=== PATIENT | female | born 1945 | race Caucasian/White ===

== ENCOUNTER 2023-01-03 07:56 | Emergency (ER) | payer OTHER ==
[~2023-01-03] VITALS: Ht 162.6 cm; Wt 113.4 kg
[2023-01-03 08:06] VITALS: BP_SYST 154
[2023-01-03] MEDS ORDERED: MORPHINE 4 MG INJ. 4 MG/ML VIAL IM ONE (08:15)
[2023-01-03] MEDS ORDERED: NAPR-1172 PO (09:43)
[2023-01-03] MEDS ORDERED: NEU300 PO (09:46)
[2023-01-03 10:02] VITALS: BP_SYST 154
== END 2023-01-03 10:03 | disposition home or self-care (01) ==
LOC: SED 07:56
DX: M54.32 Sciatica, left side (principal); M54.50 Low back pain, unspecified; M25.552 Pain in left hip; Z79.899 Other long term (current) drug therapy
CPT/HCPCS: 99283; 96372; J2270

== ENCOUNTER 2023-02-11 14:22 | Inpatient (IN) | payer OTHER ==
[~2023-02-11] VITALS: Ht 154.9 cm; Wt 101.6 kg
[~2023-02-11 14:22] MED LIST: NAPR-1172 PO; NEU300 PO
[2023-02-11 14:23] VITALS: BP_SYST 154; PULSE 75; RESP 18; TEMP 98.3; O2SAT 97
--- NOTE | 2023-02-11 14:23 | NUR ---
Patient to ER bed 02 to gown for evaluation. Side rails up. Report given to Dc BUSTAMANTE .
[2023-02-11] MEDS ORDERED: ONDANSETRON HCL 4 MG/2 ML VIAL IVP ONE (14:30)
[2023-02-11] MEDS ORDERED: MORPHINE 4 MG INJ. 4 MG/ML VIAL IVP ONE (14:30)
--- NOTE | 2023-02-11 15:18 | NUR ---
Patient is on gurney hysterically crying about every thing. Patient's daughter and son are also at bedside, helping her to go to the bathroom for a urine sample. Patient has been to CT and Xray as well as labs have been drawn.
[2023-02-11 15:26] LABS: BASOPHILS # (AUTO) 0.1 K/uL (0.0-0.2); BASOPHILS % (AUTO) 0.8 % (0.0-2.0); EOSINOPHILS # (AUTO) 0.1 K/uL (0.0-0.4); HEMOGLOBIN 13.6 g/dL (12.0-16.0); LYMPHOCYTES # (AUTO) 2.1 K/uL (1.0-5.5); MEAN CORPUSCULAR HEMOGLOBIN 27 pg (27-31); MEAN CORPUSCULAR HGB CONC 32 % (32-36); MEAN CORPUSCULAR VOLUME 85 fL (79.0-98.0); MONOCYTES # (AUTO) 0.9 K/uL (0.0-1.0); MONOCYTES % (AUTO) 9.7 % (1.7-9.3); NEUTROPHILS # (AUTO) 5.9 K/uL (1.8-7.7); NEUTROPHILS % (AUTO) 65.5 % (40.0-70.0); PLATELET COUNT (AUTO) 304 K/uL (130-430); RED BLOOD CELL COUNT(AUTO) 4.95 MIL/uL (4.2-6.2); RED CELL DISTRIBUTION WIDTH 15.6 % (9.0-15.0)
[2023-02-11 15:41] LABS: ANION GAP 9 (5-15); CALCIUM 8.3 mg/dL (8.4-11.0); CHLORIDE 99 mmol/L (98-107); CREATININE 1.26 mg/dL (0.55-1.30); GLUCOSE 181 mg/dL (70-99); UREA NITROGEN, BLOOD 14 mg/dL (8-21)
[2023-02-11 15:46] LABS: ALANINE AMINOTRANSFERASE 17 U/L (12-78); ALBUMIN 3.2 g/dL (3.4-4.8); ASPARTATE AMINOTRANSFERASE 38 U/L (10-37); TOTAL BILIRUBIN 0.4 mg/dL (0.0-1.0)
--- NOTE | 2023-02-11 16:33 | NUR ---
Patient discovered that bone was broken and that she would stay in the hospital today. Completed EKG and and IV and family remains at bedside.
[2023-02-11] MEDS ORDERED: ACETAMINOPHEN 325 MG TABLET PO PRN (17:30)
[2023-02-11] MEDS ORDERED: HYDROcodone/ACETAMIN 5-325 MG TAB (NORCO/ VICODIN) PO PRN (17:30)
[2023-02-11 18:01] LABS: BILIRUBIN,URINE NEGATIVE (NEGATIVE); BLOOD, URINE NEGATIVE (NEGATIVE); CLARITY/URINE CLEAR (CLEAR); COLOR,URINE YELLOW (YELLOW); GLUCOSE,URINE NEGATIVE (NEGATIVE); KETONES,URINE NEGATIVE (NEGATIVE); LEUKOCYTE ESTERASE ,URINE TRACE (NEGATIVE); NITRITE, URINE NEGATIVE (NEGATIVE); PH,URINE 6.5 (5.0-8.0); PROTEIN URINE NEGATIVE (NEGATIVE); UROBILINOGEN,URINE 0.2 (0.2-1.0)
[2023-02-11 18:11] LABS: BACTERIA,URINE RARE /HPF (None Seen); MUCUS,URINE None Seen /LPF (None Seen); RBC,URINE NONE SEEN /HPF (0-3)
--- NOTE | 2023-02-11 19:13 | NUR ---
RECEIVED FOR CARE AFTER REPORT. PT AWAITING ROOM ASSIGNMENT.
--- NOTE | 2023-02-11 19:45 | NUR ---
Medication reconciliation completed with information provided by SON at the bedside. Any prior medication reconciliation on file was reviewed and corrected.
[2023-02-11] MEDS ORDERED: HYD500 PO (19:48)
[2023-02-11] MEDS ORDERED: OMEP20CA15 PO (19:48)
[2023-02-11] MEDS ORDERED: FURO40SO5 PO (19:48)
[2023-02-11] MEDS ORDERED: PRAV10TA PO (19:48)
[2023-02-11] MEDS ORDERED: DILT180C67 PO (19:48)
[2023-02-11] MEDS ORDERED: METH-373 PO (19:48)
--- NOTE | 2023-02-11 19:49 | NUR ---
Admit bed requested Patient will be admitted to care of Dr.A SKELTON. Admitted to MED SURG unit. Diagnosis HUMERUS FRACTURE,HTN Inpatient (Yes or No) YES Observation (Yes or No) NO Orientation concerns or request close to nursing station (Yes or No) NO Covid Status N/A On vent or bipap NO Isolation requirements NO Needs a sitter NO From Home (Yes or if No enter name of facility) YES Requires Dialysis (Yes or No) NO Med Rec Completed (Yes of No) YES
--- NOTE | 2023-02-11 19:49 | NUR ---
REPORT CALLED TO ROBBY BOONE. TRANSPORTED TO FLOOR.
--- NOTE | 2023-02-11 20:32 | NUR ---
Patient will be admitted to care of [facility]. Admitted to MED SURGE unit. Will go to room 113A . Belongings list completed. Complete and up to date summary report printed. SBAR report to be given at bedside TO ROBBY BOONE with opportunity for questions.
[2023-02-11] MEDS: HYDROcodone/ACETAMIN 10-325 MG TAB PO PRN (20:42)
[2023-02-11 21:04] VITALS: BP_SYST 155; PULSE 89; RESP 20; TEMP 97.5
[2023-02-11 21:18] VITALS: O2SAT 95
--- NOTE | 2023-02-11 21:31 | NUR ---
ADMISSION: The patient, HAILEY CHRISTOPHER, 77 y/o, F admitted by LUCY SKELTON MD, was given written information regarding hospital policies, unit procedures and PROCEDURES EXPLAINED Fall Risk measures implemented , call alicea procedure explained FAMILY @ THE BEDSIDE personal belongings completed at the bedside / . Valuables were checked and .
[2023-02-11] MEDS ORDERED: ONDANSETRON HCL 4 MG/2 ML VIAL IVP PRN (22:15)
[2023-02-11] MEDS ORDERED: LORazepam 2 MG/ML VIAL IVP PRN (22:15)
--- NOTE | 2023-02-11 22:35 | NUR ---
Patient stated / DID NOT NEED C PAP and REFUSE C PAP for the night , 02 SAT 95 % on room air .
--- NOTE | 2023-02-11 23:29 | NUR ---
NORCO TABLET po administer for acute pain and helpful / .
[2023-02-12] VITALS (9 sets, daily range): BP systolic 122–155; PULSE 70–87; RESP 16–18; TEMP 96.4–97.7; O2SAT 91–97
--- NOTE | 2023-02-12 01:20 | NUR ---
PAGED: DR Melony SKELTON PAGED TO GET ORDER FOR CPAP , PT STATED SHE USE CPAP AT NIGHT .
--- NOTE | 2023-02-12 02:08 | NUR ---
HOURLY ROUNDING patient resting is verbally Responsive Respirations Regular also unlabored skin dry warm is verbally responsive .
--- NOTE | 2023-02-12 02:43 | NUR ---
PAGED FOR THE 3RD TIME NO CALL BACK
--- NOTE | 2023-02-12 02:58 | NUR ---
CONSULTATION PAGED REASON FOR CONSULTATION: HUMERUS FRACTURE WAS CONSULT CALLED? Y PERSON WHO WAS NOTIFIED: PILI CONSULTING PHYSICIAN: DR. WILLY PEPPER EQUIPMENT OPERAT0R DIGITAL PROOFING AND PLATEMAKER SPECIALTY: ORTHO DIGITAL PROOFING AND PLATEMAKER PHONE NUMBER: [phone] REQUESTING PHYSICIAN: Teresa SKELTON
--- NOTE | 2023-02-12 03:28 | NUR ---
MD CALLED BACK: DR Melony SKELTON CALLED BACK , NOTIFIED MD THAT PT USES CPAP AT HOME , RECEIVED NEW ORDER FOR CPAP.
[2023-02-12 05:44] LABS: BASOPHILS % (AUTO) 0.5 % (0.0-2.0); EOSINOPHILS # (AUTO) 0.1 K/uL (0.0-0.4); EOSINOPHILS % (AUTO) 0.7 % (0.0-4.0); HEMATOCRIT 37.8 % (36-48); HEMOGLOBIN 12.2 g/dL (12.0-16.0); LYMPHOCYTES # (AUTO) 1.2 K/uL (1.0-5.5); LYMPHOCYTES % (AUTO) 15.8 % (20.5-51.5); MEAN CORPUSCULAR HEMOGLOBIN 27 pg (27-31); MEAN CORPUSCULAR HGB CONC 32 % (32-36); MEAN CORPUSCULAR VOLUME 85 fL (79.0-98.0); MONOCYTES # (AUTO) 0.9 K/uL (0.0-1.0); MONOCYTES % (AUTO) 12.2 % (1.7-9.3); NEUTROPHILS # (AUTO) 5.2 K/uL (1.8-7.7); NEUTROPHILS % (AUTO) 70.8 % (40.0-70.0); PLATELET COUNT (AUTO) 268 K/uL (130-430); RED BLOOD CELL COUNT(AUTO) 4.43 MIL/uL (4.2-6.2); RED CELL DISTRIBUTION WIDTH 15.6 % (9.0-15.0); WHITE BLOOD COUNT (AUTO) 7.3 K/uL (4.8-10.8)
[2023-02-12] MEDS: NORMAL SALINE 5 ML DISP.SYRIN IVF SCH ×3 (06:08→23:08)
[2023-02-12 06:36] LABS: ALANINE AMINOTRANSFERASE 182 U/L (12-78); ALBUMIN 2.7 g/dL (3.4-4.8); ANION GAP 5 (5-15); ASPARTATE AMINOTRANSFERASE 225 U/L (10-37); CALCIUM 7.9 mg/dL (8.4-11.0); CHLORIDE 100 mmol/L (98-107); CREATININE 1.09 mg/dL (0.55-1.30); GLUCOSE 193 mg/dL (70-99); TOTAL BILIRUBIN 0.6 mg/dL (0.0-1.0); UREA NITROGEN, BLOOD 12 mg/dL (8-21)
--- NOTE | 2023-02-12 08:00 | NUR ---
ASSUMED CARE OF PATIENT AT THIS TIME. VSS. AFEBRILE. RESPIRATIONS EVEN AND UNLABORED. NO SOB NOTED. C/O LEFT ARM PAIN AT 7/10. WILL MEDICATE ORDERED. NO ACUTE DISTRESS NOTED. WILL CONTINUE TO MONITOR FOR SAFETY. Barrington RAMOS RN.
[2023-02-12] MEDS: HYDROXYUREA 500 MG CAPSULE (HYDREA) PO SCH (08:44)
[2023-02-12] MEDS: DILTIAZEM HCL 180 MG CAP.SR.24H PO SCH (08:44)
[2023-02-12] MEDS: FUROSEMIDE 40 MG TABLET PO SCH (08:45)
[2023-02-12] MEDS: methIMAzole 5 MG TABLET PO SCH (08:45)
[2023-02-12] MEDS: PANTOPRAZOLE SODIUM 40 MG TAB PO SCH (08:45)
[2023-02-12] MEDS: HYDROcodone/ACETAMIN 10-325 MG TAB PO PRN ×2 (08:49→17:56)
--- NOTE | 2023-02-12 18:35 | NUR ---
REMAINS IN STABLE CONDITION. NO ACUTE DISTRESS NOTED. Barrington RAMOS RN.
[2023-02-12] MEDS: ATORVASTATIN 10 MG TABLET PO SCH (20:44)
[2023-02-13] VITALS: BP_SYST 130; PULSE 75; RESP 17; TEMP 97.6; O2SAT 95
[2023-02-13 03:25] VITALS: O2SAT 95
[2023-02-13] MEDS: NORMAL SALINE 5 ML DISP.SYRIN IVF SCH ×3 (06:29→21:59)
[2023-02-13 07:10] VITALS: BP_SYST 145; PULSE 73; RESP 18; TEMP 97.5; O2SAT 91
--- NOTE | 2023-02-13 07:30 | NUR ---
OPENING NOTES Patient laying in bed resting. A/O x 4, [place]an speaking. Patient breathing even and unlabored on room air. Pain to Left shoulder, no distress, no SOB. Patient is on a Cardiac diet. Patient has RAC 22g patent on SL. Patient is on bedrest with PURWICK. Bed is locked in lowest position. Call light within reach, all needs met, will continue with plan of care.
--- NOTE | 2023-02-13 09:03 | NUR ---
Patient left for gastric emptying study. Should take between 2-4 hrs. Daughter is with her and took her personal items.
[2023-02-13 09:15] VITALS: BP_SYST 145; PULSE 73; RESP 18; TEMP 97; O2SAT 91
--- NOTE | 2023-02-13 11:00 | NUR ---
PATIENT CAME BACK FROM GASTRIC EMPTYING PROCEDURE.
[2023-02-13] MEDS ORDERED: FAMO40TA7 PO (11:12)
--- NOTE | 2023-02-13 11:19 | NUR ---
FER HCP CM Spoke with Fer from HCP regarding transfer to SNF and per Fer she is waiting on PT eval in order to see for SNF placement. PT to eval after 2pm.
[2023-02-13] MEDS: DILTIAZEM HCL 180 MG CAP.SR.24H PO SCH (11:36)
[2023-02-13] MEDS: methIMAzole 5 MG TABLET PO SCH (11:37)
[2023-02-13] MEDS: PANTOPRAZOLE SODIUM 40 MG TAB PO SCH (11:37)
[2023-02-13] MEDS: HYDROcodone/ACETAMIN 10-325 MG TAB PO PRN (11:37)
[2023-02-13] MEDS: HYDROXYUREA 500 MG CAPSULE (HYDREA) PO SCH (11:37)
[2023-02-13] MEDS: FUROSEMIDE 40 MG TABLET PO SCH (11:38)
--- NOTE | 2023-02-13 11:55 | NUR ---
PATIENT C/O NAUSEA AFTER CONSUMING JELLO. PATIENT VOMIT, GOWN AND LINEN CHANGED. PATIENT BREATHING UNLABORED ON RA. PAIN ON LEFT HUMERUS FX 03/19. NO DISTRESS, NO SOB. CALL LIGHT WITHIN REACH. BED LOCKED ON LOWEST POSITION. ALL NEED MET. WILL CONTINUE WITH PLAN OF CARE.
[2023-02-13 12:00] VITALS: BP_SYST 152; PULSE 83; RESP 16; TEMP 96.4; O2SAT 93
[2023-02-13] MEDS ORDERED: BISACODYL 10 MG/SUPPOSITORY RC PRN (13:15)
[2023-02-13] MEDS ORDERED: MILK OF MAGNESIA 30 ML UDC PO PRN (13:15)
[2023-02-13] MEDS ORDERED: TRAM50TA2 PO (13:40)
[2023-02-13] MEDS ORDERED: DIATR MEGLU/DIATRIZ SOD 30 ML SOLUTION PO ONE (14:30)
[2023-02-13 15:31] VITALS: BP_SYST 140; PULSE 86; RESP 16; TEMP 97; O2SAT 91
[2023-02-13] MEDS ORDERED: METOCLOPRAMIDE HCL 10 MG TABLET PO PRN (17:00)
--- NOTE | 2023-02-13 17:16 | NUR ---
MD VNETURA Spoke with MD regarding patients CT scan and inability to have a bowel movement. Patient was given suppository. MD stated to hold off on Discharge for tonight and ordered Reglan TID for patient. Patient son was informed.
--- NOTE | 2023-02-13 19:04 | NUR ---
CLOSING NOTES PATIENT AWAKE, NO PAIN, NO DISTRESS, NO SOB NOTED. FAMILY AT BEDSIDE. BED IS LOCKED IN LOWEST POSITION, ALARM ON. CALL LIGHT WITHIN REACH. WILL ENDORSE TO SOLE TRIMMER NURSE.
[2023-02-13] MEDS: ATORVASTATIN 10 MG TABLET PO SCH (21:58)
[2023-02-14 00:53] VITALS: BP_SYST 148; PULSE 82; RESP 19; TEMP 97.4; O2SAT 92
--- NOTE | 2023-02-14 02:00 | NUR ---
RECEIVED PATIENT FROM NIGHT NURSE. PATIENT IS AMBULATING TO THE BATHROOM WITH WALKER. GOT PATIENT BACK TO BED WITH CPAP ON. PATIENT IS NOW RESTING IN BED WITH NO S/S OF DISTRESS OR DISCOMFORT. SAFETY CHECKS DONE AND CALL LIGHT WITH IN REACH.
[2023-02-14] MEDS: HYDROcodone/ACETAMIN 10-325 MG TAB PO PRN (04:13)
--- NOTE | 2023-02-14 04:21 | NUR ---
ADMINISTERED NORCO FOR LEFT FX PAIN
[2023-02-14] MEDS: NORMAL SALINE 5 ML DISP.SYRIN IVF SCH ×3 (06:11→22:32)
--- NOTE | 2023-02-14 06:47 | NUR ---
Closing notes Patient is lying in bed with no s/s of distress or discomfort. Patient slept through most of the night. Gave norco @ 0421 for pain. Patient was complaining of mild itching on her abdomen and thinks it is from the norco. Patient states she asked for tramadol instead of the norco. Patient is tolerating norco well. Will endorse to dayshift nurse.
--- NOTE | 2023-02-14 08:00 | NUR ---
SUMMARY OF CARE 0800- PATIENT WITH LEFT SLING ON LEFT ARM, UNABLE TO TOLERATE BREAKFAST, PATIENT VOMITED ALL THE FOOD THAT SHE ATE, CHANGED DIET TO CLEAR LIQUID. 1200- FAMILY AT BEDSIDE AT ALL TIMES, ON PHYSICAL THERAPY. NOTIFIED DR VENTURA RE VOMITING, GI CONSULT, FLEET ENEMA ORDERED, ULTRAM TO START, DIMITRY WAS DC'D. AWAITING FOR GI TO SEE PATIENT. 1800- PATIENT ABLE TO AMBULATE WITH ASSIST TO THE BATHROOM, FOR EGD TOMORROW.
[2023-02-14 08:20] VITALS: BP_SYST 147; PULSE 79; RESP 16; TEMP 97; O2SAT 97
[2023-02-14 08:30] VITALS: O2SAT 95
[2023-02-14] MEDS: DILTIAZEM HCL 180 MG CAP.SR.24H PO SCH (10:22)
[2023-02-14] MEDS: PANTOPRAZOLE SODIUM 40 MG TAB PO SCH (10:23)
[2023-02-14] MEDS: FUROSEMIDE 40 MG TABLET PO SCH (10:23)
[2023-02-14] MEDS: methIMAzole 5 MG TABLET PO SCH (10:23)
[2023-02-14] MEDS: HYDROXYUREA 500 MG CAPSULE (HYDREA) PO SCH (10:27)
[2023-02-14 11:25] VITALS: BP_SYST 124; PULSE 82; RESP 16; TEMP 97.1; O2SAT 95
--- NOTE | 2023-02-14 12:39 | NUR ---
CONSULTATION PAGED/CALLED Reason for Consultation: VOMITING POST MEAL/ELEVATED LFT/ABNORMAL CT SCAN Person Who was Notified: ALTA Consulting Physician: NASH GARCIA Ordering Physician: JEANNETTE VENTURA
[2023-02-14] MEDS ORDERED: SODIUM PHOSPHATE,MONO-DIBASIC 133 ML ENEMA RC ONE (14:00)
[2023-02-14 15:14] VITALS: BP_SYST 145; PULSE 77; RESP 16; TEMP 98.9; O2SAT 93
--- NOTE | 2023-02-14 15:27 | NUR ---
PHYSICAL THERAPY CO-SIGN The Physical Therapy Progress Notes documented by Helmet Binder have been reviewed. Reviewed/Co-Signed by: Long Olguin Documentation Done by:LAURYN WHYTE Addendum: 02/14/23 at 1527 by Long Olguin PT Amended: Links added.
[2023-02-14] MEDS: traMADol HCL HCL 50 MG TABLET (ULTRAM) PO SCH ×2 (15:42→22:32)
[2023-02-14 15:45] LABS: ALBUMIN 2.5 g/dL (3.4-4.8); BILIRUBIN,DIRECT 0.1 mg/dL (0.0-0.3); TOTAL BILIRUBIN 0.4 mg/dL (0.0-1.0)
[2023-02-14] MEDS ORDERED: METOCLOPRAMIDE HCL 10 MG/2 ML VIAL IVP ONE (15:45)
--- NOTE | 2023-02-14 16:45 | NUR ---
Dietitian Recommendations * Continue plan for NPO for EGD * Consider advance diet if/when medically appropriate following procedure (Clear liquid --> Full liquid --> GI Soft) LP, MS, RD Please refer to Nutrition Assessment for details. Addendum: 02/14/23 at [address] Amended: Links added.
[2023-02-14 20:15] VITALS: BP_SYST 161; PULSE 80; RESP 18; TEMP 98.1; O2SAT 93
[2023-02-14] MEDS: METOCLOPRAMIDE HCL 10 MG/2 ML VIAL IVP SCH (22:33)
[2023-02-15] VITALS (7 sets, daily range): BP systolic 103–163; PULSE 62–101; RESP 16–18; TEMP 97.2–99; O2SAT 96–98
--- NOTE | 2023-02-15 00:05 | NUR ---
NPO Pt educated and maintained NPO for EGD. No c/o N/V.
[2023-02-15 06:02] LABS: BASOPHILS % (AUTO) 0.5 % (0.0-2.0); EOSINOPHILS # (AUTO) 0.2 K/uL (0.0-0.4); EOSINOPHILS % (AUTO) 1.9 % (0.0-4.0); HEMOGLOBIN 12.3 g/dL (12.0-16.0); LYMPHOCYTES # (AUTO) 1.5 K/uL (1.0-5.5); LYMPHOCYTES % (AUTO) 15.3 % (20.5-51.5); MEAN CORPUSCULAR HEMOGLOBIN 27 pg (27-31); MEAN CORPUSCULAR HGB CONC 32 % (32-36); MEAN CORPUSCULAR VOLUME 85 fL (79.0-98.0); MONOCYTES # (AUTO) 1.3 K/uL (0.0-1.0); NEUTROPHILS # (AUTO) 6.5 K/uL (1.8-7.7); NEUTROPHILS % (AUTO) 68.3 % (40.0-70.0); PLATELET COUNT (AUTO) 293 K/uL (130-430); RED BLOOD CELL COUNT(AUTO) 4.48 MIL/uL (4.2-6.2); RED CELL DISTRIBUTION WIDTH 15.6 % (9.0-15.0); WHITE BLOOD COUNT (AUTO) 9.6 K/uL (4.8-10.8)
[2023-02-15] MEDS: NORMAL SALINE 5 ML DISP.SYRIN IVF SCH ×2 (06:13→13:45)
[2023-02-15] MEDS: METOCLOPRAMIDE HCL 10 MG/2 ML VIAL IVP SCH ×2 (06:14→13:44)
--- NOTE | 2023-02-15 06:15 | NUR ---
Closing notes Pt asleep, easily awakens, no s/s distress. Pt maintained NPO. L. arm sling on. Ice packs provided for comfort. IV saline lock R. AC 22G clear and patent. Safety maintained. Bed alarm on. To endorse to AM nurse.
[2023-02-15 06:26] LABS: ANION GAP 7 (5-15); CALCIUM 7.9 mg/dL (8.4-11.0); CHLORIDE 93 mmol/L (98-107); CREATININE 0.99 mg/dL (0.55-1.30); GLUCOSE 163 mg/dL (70-99); UREA NITROGEN, BLOOD 9 mg/dL (8-21)
--- NOTE | 2023-02-15 06:42 | NUR ---
HIGH ALERT NOTE: Called Dr. VENTURA back at identified within the medical roster to verify physician authenticity. [id number] [id number].
[2023-02-15] MEDS ORDERED: POTASSIUM CHLORIDE 40 MEQ in NS 250 ML IV ONE (07:00)
--- NOTE | 2023-02-15 07:00 | NUR ---
Received call from GI Spoke with Jill from GI and per Jill, will pharmacy picking tech pt soon. SBAR report given. Informed her K+ 2.8. Consent for EGD in chart. Family at bedside.
[2023-02-15] MEDS ORDERED: D5/0.45 NS 1,000 ML IV SCH (07:15)
--- NOTE | 2023-02-15 07:28 | NUR ---
received pt alert, oriented, awake on cell phone with family member at bedside. skin warm and dry. EGD scheduled for this morning. automatic furnace operator ROBBY smith GI dept aware of low potassium
[2023-02-15] MEDS ORDERED: MIDAZOLAM HCL 5 MG/5 ML VIAL ONE (07:32)
[2023-02-15] MEDS ORDERED: fentaNYL CITRATE/PF 100 MCG/2 ML AMP ONE (07:32)
--- NOTE | 2023-02-15 07:38 | NUR ---
pt being taken to ops/gi for EGD now
--- NOTE | 2023-02-15 10:25 | NUR ---
pt returned from OPS on 2L 02 to maintain saturations. vitals stable, HTN. meds given per orders. tolerated water, ice and apple juice without nausea. OPS RN states Dr Davis will order full liquids. son at bedside states he spoke with Dr Davis. repositioned in bed. left arm elevated with pillow and sling on. call light in reach
[2023-02-15] MEDS: methIMAzole 5 MG TABLET PO SCH (10:26)
[2023-02-15] MEDS: PANTOPRAZOLE SODIUM 40 MG TAB PO SCH (10:26)
[2023-02-15] MEDS: HYDROXYUREA 500 MG CAPSULE (HYDREA) PO SCH (10:27)
[2023-02-15] MEDS: traMADol HCL HCL 50 MG TABLET (ULTRAM) PO SCH ×2 (10:27→15:00)
[2023-02-15] MEDS: DILTIAZEM HCL 180 MG CAP.SR.24H PO SCH (10:27)
[2023-02-15] MEDS: FUROSEMIDE 40 MG TABLET PO SCH (10:27)
--- NOTE | 2023-02-15 11:38 | NUR ---
pt's son Remberto states [facility] has beds available. called Hillary from [facility]. notified of DC order and [facility] availability. states she will send info to clinicals and will call me with update later. Hillary #[phone]
--- NOTE | 2023-02-15 13:00 | NUR ---
PHYSICAL THERAPY CO-SIGN The Physical Therapy Progress Notes documented by Building Maintenance Repairer have been reviewed. Reviewed/Co-Signed by: Long Olguin Documentation Done by:LAURYN WHYTE Addendum: 02/15/23 at 1300 by Long Olguin PT Amended: Links added.
--- NOTE | 2023-02-15 13:04 | NUR ---
[facility]/HCP BEENA MONROE GAVE THE TRANSFER INFO: [facility] RM 13 B TEL # FOR REPORT -- [phone] AMBULANCE FOR TRANSPORT: [facility] COMING AT 1500. INFORMATION GIVEN TO JOSS BUSTAMANTE
--- NOTE | 2023-02-15 15:35 | NUR ---
pt taken via [facility] ambulance to [facility] daughter at bedside during transfer; aware. report was given to Julieta at facility. no distress. assisted to stand and sit on gurney. iv removed. belongings taken
== END 2023-02-15 15:25 | DRG 563 ==
LOC: SED 14:22 → SMU 17:29
PROVIDERS: ADMIT Specialist; ATTEND Specialist
PROC: 5A09357 Assistance with Respiratory Ventilation, Less than 24 Consecutive Hours, Continuous Positive Airway Pressure (ICD-10-PCS; 2023-02-11)
PROC: 0DB78ZX Excision of Stomach, Pylorus, Via Natural or Artificial Opening Endoscopic, Diagnostic (ICD-10-PCS; principal; 2023-02-15 10:00)
DX: S42.202B Unspecified fracture of upper end of left humerus, initial encounter for open fracture (principal); Z68.41 Body mass index [BMI] 40.0-44.9, adult; K25.9 Gastric ulcer, unspecified as acute or chronic, without hemorrhage or perforation; E78.5 Hyperlipidemia, unspecified; K22.2 Esophageal obstruction; K29.70 Gastritis, unspecified, without bleeding; K44.9 Diaphragmatic hernia without obstruction or gangrene; E66.9 Obesity, unspecified; K59.00 Constipation, unspecified; N18.9 Chronic kidney disease, unspecified; I12.9 Hypertensive chronic kidney disease with stage 1 through stage 4 chronic kidney disease, or unspecified chronic kidney disease; W18.39XA Other fall on same level, initial encounter; K21.9 Gastro-esophageal reflux disease without esophagitis; Y93.89 Activity, other specified; Y92.89 Other specified places as the place of occurrence of the external cause; Y99.8 Other external cause status; Z86.73 Personal history of transient ischemic attack (TIA), and cerebral infarction without residual deficits; Z90.710 Acquired absence of both cervix and uterus; Z90.49 Acquired absence of other specified parts of digestive tract
CPT/HCPCS: 36415; 43239; 70450-TC; 71045; 73030; 74160-TC; 76376; 78264-TC; 80048; 80053; 80076; 81000; 83605; 83735; 84100; 85025; 87040; 87081; 88305; 88312; 88313; 93005; 94660; 94760; 96374; 96375; 97110-GP; 97116-GP; 97163-GP; 97530-GP; 99285; A9541; J2250; J2270; J2405; J2765; J3010; J3480; J7050; J8597; Q9964